=== PATIENT | male | born 1970 | race Caucasian/White ===

== ENCOUNTER → 2016-08-31 | Outpatient (CLI) | payer OTHER ==
[~2016-08-31] VITALS: Ht 190.5 cm; Wt 125.6 kg
[~2016-08-31] MED LIST: DIOVAN HCT 3201 EAC1 PO; IBUPROFEN200 M1 PO; LOPRESSOR50 PO; LOSARTAN-HCTZ1 EAC1 PO; PRILOSEC20 MG PO; ZOLOFT50 MG PO
--- NOTE | ~2016-08-31 | HPC ---
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 Sonny Rosado 08/29/2015, for lumbar radiculopathy. The patient had a single epidural injection with good improvement of baseline pain, noting 50% improvement for 2-3 months. The patient notes he travels a great deal with his job with sitting and bending, he developed recurrence radicular symptoms. He notes pain has recurred in the low back, left hip, posterior aspect down to the leg, rates the pain a 5 on a 0-10 visual analog scale, seems to be exacerbated with prolonged sitting or climbing stairs. PHYSICAL EXAMINATION: Shows a 46-year-old gentleman, BMI is 34.6 kg/m2. Vital signs are stable as noted in the EMR. Slight decreased left hip flexion strength. Modestly positive straight leg raise on the left. We reviewed his diagnostic findings including MRI of the lumbar spine noting a large circumferential disk bulge at L5-S1, canal narrowed to 0.7 cm with bilateral neural foraminal narrowing at L4-L5. ASSESSMENT: Symptomatic lumbar radiculopathy. RECOMMENDATION: Lumbar epidural injection under fluoroscopy today with very good relief following the prior injection by Dr. Sonny Rosado at L4-L5. Repeat epidural injection at L4-L5 today. Follow up simply as needed for recurrent radicular symptoms. Thank you for allowing me to participate in the patient's care. PROCEDURE: Lumbar epidural injection under fluoroscopy. PROCEDURE NOTE: After both written and informed consent to include risk of spinal cord damage, increased pain, weakness and dural puncture, the patient was taken to the fluoroscopy suite, placed in the prone position. After sterile prep and drape, a skin wheal with lidocaine was raised. A 22-gauge epidural Tuohy needle was inserted in the midline at L4-L5 with good loss to resistance. Negative aspiration for cerebrospinal fluid or blood was noted. Then 1 mL of Omnipaque under biplanar fluoroscopy showed good spread within the epidural space. This was followed with 80 mg of triamcinolone plus 1 mL of 1.5% preservative-free Xylocaine, 0.5 mL Xylocaine was then injected to flush the [address] [address] PAIN MANAGEMENT CONSULTATION Name: TABATHA SERRANO [facility] [id number] Admission: 08/31/16 Attend Phys: Miguelangel Mesa DO Discharge: Date of : 66 Report #: [id number] needle; it was removed. The patient was monitored for an appropriate period of time and discharged in good and stable condition. <ELECTRONICALLY SIGNED> By: Miguelangel Mesa DO 09/02/16 0802 [id number] Miguelangel Mesa DO /nt
[2016-08-31 13:37] VITALS: BP 112/75
== END | disposition home or self-care (01) ==
LOC: PAIN 07:07
DX: M54.16 Radiculopathy, lumbar region (principal); G89.29 Other chronic pain

== ENCOUNTER → 2017-01-18 | Outpatient (CLI) | payer OTHER ==
[~2017-01-18] VITALS: Ht 190.5 cm; Wt 124.5 kg
[~2017-01-18] MED LIST changes: +CELEBREX 200 M200 MG PO; +NORVASC5 MG PO; +TRAMADOL 50 MG50 MG PO
--- NOTE | ~2017-01-18 | HPC ---
[facility] [place] [address] PAIN MANAGEMENT CONSULTATION Name: TABATHA SERRANO Room #: REG PAULA Kathie.#: [id number] Admission: 01/18/17 Attend Phys: Sonny Rosado MD Discharge: Date of : 66 Report #: [id number] THIS REPORT FOR: //name// CC: Kings Rosado DATE OF SERVICE: 01/21/2017 Followup visit for cervicalgia without radiculopathy. I am seeing the patient today for pain in the neck and shoulders. It does not radiate into his arms. It is described as a 4/10 today, but can be much worse. It is cramping, sore, tender associated with deep ache. He has been seen here previously in the pain clinic for treatment of lumbar radiculopathy and last visit was on 08/29/2015. Today, he reports that pain is being treated with ibuprofen 800 mg b.i.d., limited improvement with those medicines. He is also taking Prilosec. He has had no physical therapy. PHYSICAL EXAMINATION: Blood pressure 114/73, heart rate 65, respirations 16. He is 6 feet 3 inches, 274 pounds, BMI of 34. Examination of the neck reveals reduced range of motion, flexion, extension, rotation, and [id number] tilt. He has tenderness below the occiput. He also has tenderness all along the cervical spine bilaterally. There is pain into the left shoulder, but no further. Good strength in the upper extremities. Deep tendon reflexes are normal. Sensation and strength are normal. X-RAYS AVAILABLE OF THE CERVICAL SPINE: None. RECOMMENDATIONS: 1. Trial of physical therapy. I have referred him to Greg De La Cruz. The patient has had a previous anterior cervical diskectomy at C6-C7. 2. Discontinue ibuprofen with trial of Celebrex 200 mg once a day. 3. Tramadol 50 mg, #60 tablets 1 tablet q. 8 hours p.r.n. severe pain. Followup visit is planned after physical therapy. May be a candidate for injections, might consider a cervical epidural if he develops more in the way of radicular symptoms. By: [id number] Sonny Rosado MD /nt
[2017-01-18 13:28] VITALS: BP 114/73
== END | disposition home or self-care (01) ==
LOC: PAIN 07:36
DX: M54.2 Cervicalgia (principal); Z68.34 Body mass index [BMI] 34.0-34.9, adult; Z79.899 Other long term (current) drug therapy

== ENCOUNTER → 2018-11-24 | Outpatient (CLI) | payer OTHER ==
[~2018-11-24] VITALS: Ht 190.5 cm; Wt 127.0 kg
[~2018-11-24] MED LIST changes: +GLUCOPHAGE XR500 MG PO; +IRBESARTAN-HCT1 EAC1 PO
--- NOTE | ~2018-11-24 | HPC ---
[facility] [address] PAIN MANAGEMENT CONSULTATION Name: TABATHA SERRANO Room #: REG PAULA Kathie.#: [id number] Admission: 11/24/18 ������������������ Attend Phys: Sonny Rosado MD Discharge: ������������������ Date of : 66 Report #: [id number] THIS REPORT FOR: //name// CC: Kings Rosado DATE OF SERVICE: 11/24/2018 CHIEF COMPLAINT: Cervicalgia without radiation. HISTORY OF PRESENT ILLNESS: The patient returns to the pain clinic today complaining of pain in the left neck. Pain is worse with neck flexion. He has been working at a standup desk and finds that if he looks up that the pain is more tolerable. He has some bruxism and a history of TMJ. There is some question of whether or not his neck pain is a result of the TMJ that he is experiencing as well. He denies arm pain. He did have an anterior cervical diskectomy and fusion that significantly improved radiculopathy. We discussed the role of that surgery that might result in some pain in his neck as well. There may be some underlying spondylosis as well. There are clearly myofascial components. He has localized tenderness. Deep tissue massage seems to be helpful. PHYSICAL EXAMINATION: GENERAL: He is a pleasant, outgoing physician. VITAL SIGNS: His blood pressure is 148/83, heart rate 74 and respirations 16. BMI is 35. MUSCULOSKELETAL: He has localized tenderness along the trapezius, extending up to the occiput on the left. There is some involvement also of the splenius capitis and cervicalis. IMPRESSION: Cervicalgia with myofascial features. He may be a candidate for Botox. We also talked about trigger point injections or dry needling as a way of relaxing the muscle. I have offered him trigger point injections. That is when things got complicated. The simple injections which could be performed quickly in the clinic before his discharge could not be performed by his current [facility] open access insurance without a preauthorization. We tried. He has an upcoming vacation and was looking forward to perhaps some relief by the trigger point injections. So he stayed in our office for at least 30-45 minutes as our office tried to bring about a preauthorization for this [address] [address] PAIN MANAGEMENT CONSULTATION Name: TABATHA SERRANO Room #: REG [facility] Alison.#: [id number] Admission: 11/24/18 ������������������ Attend Phys: Sonny Rosado MD Discharge: ������������������ Date of : 66 Report #: [id number] simple procedure. They were unable to do so. He left without the injections and will return for them in the future. Followup visit is scheduled as needed. ��������������������������������������������� ���������������������������������������� By: ��������������������������������������������� [id number] Sonny Rosado MD /nt
[2018-11-24 13:26] VITALS: BP 148/83
--- NOTE | 2018-11-24 13:37 | NUR ---
Pain Clinic Assessment: 1. History of Osteoarthritis: SPINE LEFT HIP History of Rheumatoid Arthritis: NO 2. Height: 6 ft. 3 in. 190.5 cm. Weight: 280.0 lb. oz. 127.008 kg. Patient's BMI: 35.0 3. Vital Signs: BP: 148/83 Pulse: 74 Resp: 16 Temp: 02 Sat: 96 ECG Mon: 4. Pain Intensity: 3 5. Fall Risk: Dizziness: N Needs help standing or walking: N Fallen in the last 3 months: N Fall risk comments: 6. Patient on Blood Thinner: None 7. History of Hypertension: Y 8. Opioid Therapy greater than 6 weeks: N Opiate Contract Signed: 9. Risk Assessment Tool Provided: LOW-O 10. Functional Assessment Tool: 11. Recreational Drug Use: Never Drug Type: Tobacco Use: Never Smoker Tobacco Type: Amount or Packs/day: How Many Years: Alcohol Use: Yes Frequency: Special Occasions Quant: 2-3
== END ==
LOC: PAIN 06:58
DX: M54.2 Cervicalgia (principal)

== ENCOUNTER → 2020-06-06 | Outpatient (CLI) | payer OTHER ==
[~2020-06-06] VITALS: Ht 190.5 cm; Wt 124.5 kg
[~2020-06-06] MED LIST changes: -GLUCOPHAGE XR500 MG PO; +METFORMIN HCL500 MG PO
[2020-06-06 14:05] VITALS: BP 134/91
--- NOTE | 2020-06-07 11:18 | HPC ---
[facility] [place] [address] [place] [address] PAIN MANAGEMENT CONSULTATION Name: TABATHA SERRANO Room #: REG PAULA LongKathieFranckKathie#: [id number] Admission: 06/06/20 Attend Phys: Abril Seth Discharge: Date of : 66 Report #: [id number] THIS REPORT FOR: cc: Kings Blanca MD, Amit MD Hocker,Abril CASEY ~ DATE OF SERVICE: 06/06/2020 CC: Dr Sonny Rosado CHIEF COMPLAINT: Lumbar radiculopathy and cervicalgia without radiation. HISTORY OF PRESENT ILLNESS: This is a 50-year-old gentleman who returns to the Pain Clinic after an absence of greater than one year. Today reporting increasing pain in his left hip that radiates into the anterior aspect of his left thigh. It has been increasing for the last 6 months. This has been an ongoing issue for several years, which he has been treated for in the past by Dr. Sonny Rosado for his lumbar radiculopathy and had several lumbar epidural steroid injections. The patient describes his pain as a sensation of being on fire deep in his thigh, but not a burning sensation. It is an aching pain that is worse with standing and walking, rating at a 7/10 today. He reports taking an occasional tramadol as well as anti-inflammatories that have been beneficial. He stretches daily and excerises. He presents today wondering if he needs another MRI or a possible lumbar epidural steroid injection. The patient also complains of ongoing cervicalgia. It is located on his left occipital area that does radiate upward into the top of his head causing headaches. Occasionaly it starts in his left trapezius and causing him significant tightness in that muscle. He has had an anterior cervical diskectomy and fusion in the past. He is not having any radicular symptoms in his arms associated with this today. The patient is wondering about possible Botox injections or trigger point injections for this ongoing problematic area. ALLERGIES: No known drug allergies. CURRENT LIST OF MEDICATIONS: Metformin, irbesartan, Norvasc, Lopressor, ibuprofen and Zoloft. PQRS: 1. He has osteoarthritis of his spine as well as his left hip. He denies any rheumatoid arthritis. 2. Height is 6 feet 3 inches, weight is 274, BMI is 34. 3. Vital signs; blood pressure 134/91, pulse is 91, respirations 18, oxygen sat is 97%. 4. Pain score is 7/10. 5. Denies dizziness, does not need assistance with ambulation. Has not fallen in the last 3 months. 6. The patient is not on any blood thinners, but does take medicine for hypertension. [address] [address] PAIN MANAGEMENT CONSULTATION Name: TABATHA SERRANO Room #: REG [facility] Benoit#: [id number] Admission: 06/06/20 Attend Phys: Abril Seth Discharge: Date of : 66 Report #: [id number] 7. Opioid therapy is less than 6 weeks. Risk assessment is low. Functional assessment is 25/70. 8. Recreational drug use, he denies. He is not a smoker and occasionally drinks alcohol. PAST MEDICAL HISTORY: C6-C7 radiculopathy that was treated with a cervical fusion and diskectomy in 2010, tonsillectomy and adenoidectomy, hypertension. PHYSICAL EXAMINATION: GENERAL: This is alert and orientated, very pleasant 50-year-old gentleman, rating his pain today at 7/10. He is a good historian. HEENT: Normocephalic and atraumatic. Extraocular eye muscles are intact. NECK: Cervical provocation testing is negative. He has tenderness in the occipital region of his left occipital area. Localized tenderness along his left trapezius that extends across the neck and head. MUSCULOSKELETAL: Tenderness in his lumbosacral region that radiates following L4-L5 dermatomal distribution with pain in the left thigh. This does not extend past his knee. Forward flexion relieves some pain, extension exacerbates. His deep tendon reflexes are diminished to absent bilaterally at the knees. He moves from the sitting to standing position without difficulty. His lower extremity strength is symmetrical at 5/5. IMPRESSION: 1. Lumbar radiculopathy. 2. Lower extremity neuropathic lumbar radiculopathy. 3. Cervicalgia without radiculopathy. 4. Cervicogenic headaches. PLAN: 1. We discussed treatment options with the patient today. The patient has multiple pain generators. First, we discussed his lumbar spine. The patient has had previous lumbar epidural steroid injections with success from the majority of these injections. I think it is warranted to try this again at the L4-L5 dermatomal level to see if this decreases some of this pain. He has an MRI in 2014. Pain appears to have the same assessment and is following the same path noted narrowing and his foraminal at the L4-L5 level. We will seek authorization for an L4-L5 lumbar epidural steroid injection to be performed hopefully before the end of the year, if authorization is approved. 2. The patient continues to have cervicalgia in the left occipital area. He has been suffering this for several years. He also has a history of TMJ and does clench his teeth daily, especially with increase stress. He is unsure if this increases his pain, but he is wondering about being a candidate for Botox. He continues to massage this area on a daily basis. We will send a referral to Dr. Brady for them to determine if Botox would be beneficial for him. [facility] [address] [place] [address] PAIN MANAGEMENT CONSULTATION Name: TABATHA SERRANO Room #: REG [facility].#: [id number] Admission: 06/06/20 Attend Phys: Abril Seth Discharge: Date of : 66 Report #: [id number] 3. I have offered the patient a small script of tramadol 50 mg, #30. This was phoned in under collaboration with Dr. Sonny Rosado. He has taken this sparingly throughout the past 6 months. Last prescription fill from Dr. Rosa Isela Carrasco was in Oct.22. We will call the patient once we hear if his lumbar epidural steroid injection was approved. The patient is seen today in collaboration with Dr. Rosado. <ELECTRONICALLY SIGNED> By: Abril Seth 06/07/20 1118 [id number] 47 Abril Seth /nt
== END ==
LOC: PAIN 06:56
PROVIDERS: ATTEND Clinical Nurse Specialist Adult Health
DX: M54.16 Radiculopathy, lumbar region (principal); R51.9 Headache, unspecified; G62.9 Polyneuropathy, unspecified; Z88.8 Allergy status to other drugs, medicaments and biological substances; Z79.899 Other long term (current) drug therapy

== ENCOUNTER → 2020-06-11 | Outpatient (CLI) | payer OTHER ==
[~2020-06-11] VITALS: Ht 190.5 cm; Wt 124.0 kg
[2020-06-11 08:15] VITALS: BP 118/83
--- NOTE | 2020-06-11 08:24 | NUR ---
Pain Clinic Assessment: 1. History of Osteoarthritis: SPINE LEFT HIP History of Rheumatoid Arthritis: NO 2. Height: 6 ft. 3 in. 190.5 cm. Weight: 273.4 lb. oz. 124.014 kg. Patient's BMI: 34.2 3. Vital Signs: BP: 118/83 Pulse: 64 Resp: 16 Temp: 02 Sat: 98 ECG Mon: 4. Pain Intensity: 5-6 5. Fall Risk: Dizziness: N Needs help standing or walking: N Fallen in the last 3 months: N Fall risk comments: 6. Patient on Blood Thinner: None 7. History of Hypertension: Y 8. Opioid Therapy greater than 6 weeks: N Opiate Contract Signed: 9. Risk Assessment Tool Provided: LOW-O 10. Functional Assessment Tool: 11. Recreational Drug Use: Never Drug Type: Tobacco Use: Never Smoker Tobacco Type: Amount or Packs/day: How Many Years: Alcohol Use: Yes Frequency: Quant:
--- NOTE | 2020-06-12 11:33 | HPC ---
[facility] [place] [address] PAIN MANAGEMENT CONSULTATION Name: TABATHA SERRANO Room #: REG PAULA LongKathieFranckKathie#: [id number] Admission: 06/11/20 Attend Phys: Crispin Mesa DO Discharge: Date of : 66 Report #: [id number] THIS REPORT FOR: cc: Kings Blanca MD, Amit MD Johnson, James E. DO ~ DATE OF SERVICE: 06/11/2020 REFERRING PHYSICIAN: Dr. Kings Blanca CHIEF COMPLAINT: Low back pain, left lower extremity pain with paresthesias. HISTORY OF PRESENT ILLNESS: As you know, the patient is a 50-year-old male who has returned today in followup visit with recurrent lumbar radicular symptoms. He states pain begins in low back, radiates to the anterior thigh in what appears to be L3-L4 dermatomal distribution. The patient has had imaging done 5 years ago, which showed changes at the L3-L4 and L4-L5 level, likely contributing to symptoms. He has undergone epidural injections with my partner, Dr. Sonny Rosado with good efficacy of the most recent epidural injection reportedly gave 60-70% improvement in overall pain lasting until just recently where he has had a slow and progressive return of symptoms. The patient indicates no new injury or trauma that may have led to symptom reoccurrence. He is indicating pain that radiates from the low back to the left anterior thigh, for which he gives a pain score 5-6/10. He returns today in followup visit for epidural injection under fluoroscopic guidance. ALLERGIES: No known drug allergies. CURRENT MEDICATIONS: Metformin 500 mg b.i.d., irbesartan-hydrochlorothiazide 300/12.5 mg once a day, amlodipine 5 mg per day, metoprolol 50 mg per day, ibuprofen 200 mg twice a day, sertraline 50 mg once a day. SOCIAL HISTORY: The patient denies tobacco, alcohol, IV or illicit drug use. He is working, not receiving workmen's compensation, unaccompanied today. IMAGING: No new imaging available. PHYSICAL EXAMINATION: VITAL SIGNS: Blood pressure 118/83, pulse is 64, respiratory rate 16 and unlabored. The patient is 98% on room air, height 6 feet 3 inches tall, weight 273 pounds, BMI calculated 34.2. GENERAL: Well-developed, well-nourished, well-hydrated, 50-year-old male appearing stated age, pain is rated anywhere from 5-6/10. HEENT: Normocephalic, atraumatic. Pupils equal, round and reactive. NEUROLOGIC: Speech is fluent. The patient is wearing a mask in compliance with COVID-19 [place] [address] PAIN MANAGEMENT CONSULTATION Name: TABATHA SERRANO Franck Room #: REG PAULA Benoit#: [id number] Admission: 06/11/20 Attend Phys: Crispin Mesa DO Discharge: Date of : 66 Report #: [id number] EXTREMITIES: Show no clubbing, no cyanosis, no edema. MUSCULOSKELETAL: Lower extremity strength appears symmetrical 5/5, intact to light touch from L1 through S2 dermatomes. Seated straight leg raising positive on the left. Supine straight leg raising positive on the left. Sudheer's test is negative. ASSESSMENT: 1. Symptomatic lumbar radiculopathy. 2. Spinal stenosis of the lumbar spine. 3. Displacement of lumbar intervertebral disk with radiculopathy. 4. Lumbosacral spondylosis with radiculopathy. 5. Neural foraminal stenosis of lumbar spine. 6. Degeneration of lumbar spine. 7. Chronic intractable pain. PLAN: 1. The patient returns today in followup visit requesting to undergo lumbar epidural injection under fluoroscopic guidance. The patient did report improvement in symptoms with the previous epidural injection, lasting for months. Unfortunately, his symptoms have begun to return. He denies injury or trauma. He returns today in followup visit requesting to undergo a lumbar epidural injection under fluoroscopic guidance. We have reviewed with the patient his MRI findings from 05/03/2020. The patient believes he may have had an MRI done about 2 years ago, but does not have available. He states he underwent this imaging [facility]. We will attempt to gain this information and contact the patient once we have this information if significant changes have been noted over the period. The patient has been consented to undergo an epidural injection today, has been advised risks and benefits of the procedure, states understood and wished to proceed. 2. No medication changes made at today's visit. The patient will continue current medical therapy as prior prescribed. 3. We plan to see the patient back in followup visit on an as needed basis for the next in the series of lumbar epidural injections. We are hopeful the patient will see good and prolonged benefit with today's procedure. I did advise the patient if we were able to obtain the imaging study, he had done 2 years ago. We will review that compare to his 2015 study and provide him with further directions and treatment if necessary. The patient is agreeable. PROCEDURE NOTE DESCRIPTION OF PROCEDURE: L4-L5 left parasagittal epidural steroid injection under fluoroscopic guidance. After obtaining written consent, the patient was taken back to fluoroscopy suite, placed in prone position with pillow under abdomen to decrease lumbar lordosis. Skin overlying lumbosacral area then prepped and draped in aseptic [address] [address] PAIN MANAGEMENT CONSULTATION Name: TABATHA SERRANO Room #: REG PAULA Kaycee#: [id number] Admission: 06/11/20 Attend Phys: Crispin Mesa DO Discharge: Date of : 66 Report #: [id number] fashion. The L4-L5 vertebral interspace identified by AP fluoroscopy. Skin and subcutaneous tissue overlying target site injection anesthetized with 3 mL of 1% lidocaine. A 20-gauge 3-1/2 inch Tuohy needle advanced under fluoroscopic guidance towards the epidural space using a left parasagittal approach. Epidural space identified using loss of resistance to air technique. After negative aspiration for heme or cerebrospinal fluid, 1 mL of Omnipaque injected. A lumbar epidurogram was confirmed using both AP and lateral fluoroscopy. After negative aspiration for heme or cerebrospinal fluid, 5 mL of a solution containing 2 mL 40 mg per mL, 80 mg total triamcinolone along with 3 mL of lidocaine 1% injected slowly. Needle retracted care home, flushed with 1 mL of 1% lidocaine and then removed. Sterile bandage placed over injection site. No new motor deficits present in the lower extremities following procedure. The patient tolerated procedure well, carefully escorted to recovery room in stable condition. No apparent complications. After meeting discharge criteria, the patient discharged home. <ELECTRONICALLY SIGNED> By: Crispin Mesa DO 06/12/20 1133 1208 1241 Crispin Mesa DO /alexander
== END | disposition home or self-care (01) ==
LOC: PAIN 06:44
PROVIDERS: ATTEND Anesthesiology Pain Medicine
DX: M51.16 Intervertebral disc disorders with radiculopathy, lumbar region (principal); M47.27 Other spondylosis with radiculopathy, lumbosacral region; M48.061 Spinal stenosis, lumbar region without neurogenic claudication; G89.29 Other chronic pain; Z98.890 Other specified postprocedural states; Z79.899 Other long term (current) drug therapy